=== PATIENT | male | born 1980 | race Caucasian/White ===

== ENCOUNTER 2022-11-16 18:43 | Emergency (ER) | payer OTHER, SELFPAY ==
[2022-11-16 18:50] VITALS: BP 152/90; PULSE 70; RESP 18; TEMP 36.7; O2SAT 100; BMI 26.6
--- NOTE | 2022-11-16 19:46 | ED.SKABFB1 ---
HPI - Skin/Abscess/Foreign Bdy General Chief complaint: Skin/Abscess/Foreign Body Stated complaint: RASH Time Seen by Provider: 11/16/22 19:43 Source: patient Mode of arrival: walk-in Limitations: no limitations History of Present Illness HPI narrative: skin rash past 3 days. pruritic rash . started right shoulder and has now spread to his trunk, arms and neck. No fever or pain. No associated dyspnea MD complaint: Reports rash Related Data Allergies Allergy/AdvReac Type Severity Reaction Status Date / Time No Known Drug Allergies Allergy Verified 11/16/22 18:56 Review of Systems ROS Status of ROS 10 or more systems reviewed and unremarkable except as noted in history and below PFS PFS Social History Smoking status: Current every day smoker Exam Constitutional Vital Signs, click to edit/add: Last Vital Signs Temp 98.1 F 11/16/22 18:50 Pulse 70 11/16/22 18:50 Resp 18 11/16/22 18:50 BP 152/90 H 11/16/22 18:50 Pulse Ox 100 11/16/22 18:50 O2 Del Method Room Air 11/16/22 18:50 Common normals: no apparent distress, average body habitus, oriented x3, no limitations and healthy appearing Other: rash gen. on extremities, neck and trunk HENMT Common normals: normocephalic and head/scalp atraumatic Eye Common normals: EOMs intact bilaterally, conjunctivae normal and no scleral icterus Respiratory Common normals: normal respiratory effort, no retractions and no use of accessory muscles Cardio Common normals: regular rate, regular rhythm, S1 normal heart sound and S2 normal heart sound GI Common normals: Normal to inspection, nondistended, normoactive bowel sounds present, soft to palpation and non-tender Extremity Common normals: normal to inspection and full ROM Neuro Common normals: oriented x3, CN's II-XII intact bilaterally, moves all extremities and no focal motor deficits Psych Appearance: grossly normal Course Vital Signs Vital signs: Vital Signs Temperature 98.1 F 11/16/22 18:50 Pulse Rate 70 11/16/22 18:50 Respiratory Rate 18 11/16/22 18:50 Blood Pressure 152/90 H 11/16/22 18:50 Pulse Oximetry 100 11/16/22 18:50 Oxygen Delivery Method Room Air 11/16/22 18:50 Temperature 98.1 F 11/16/22 18:50 Pulse Rate 70 11/16/22 18:50 Respiratory Rate 18 11/16/22 18:50 Blood Pressure 152/90 H 11/16/22 18:50 Pulse Oximetry 100 11/16/22 18:50 Oxygen Delivery Method Room Air 11/16/22 18:50 MDM - Skin/Abscess/Foreign Bdy MDM Narrative Medical decision making narrative: patient presents with gen. pruritic rash. Has appearance of [place]. non painful or tender. No associated dyspnea or joint swelling. Given an injection of solumedrol and discharged home with a prescription of prednisone Discharge Plan Discharge Chief Complaint: Skin/Abscess/Foreign Body Clinical Impression: Contact dermatitis Patient Disposition: Home, Self-Care Condition: Good Mode of Transportation: Private Vehicle Instructions: Contact Dermatitis (ED) Additional Instructions: follow up with your doctor later this week for recheck Stand Alone Forms: Portal Instructions Referrals: Physician,Non-Staff, MD [Primary Care Provider] - 1 week Discharge Date/Time: 11/16/22 20:30
[2022-11-16] MEDS: METHYLPREDNISOLONE SOD SUCC PF 125 MG/2 ML VIAL IM (20:21)
== END 2022-11-16 20:30 | disposition home or self-care (01) ==
PROVIDERS: Emergency Provider Internal Medicine
DX: L25.9 Unspecified contact dermatitis, unspecified cause (principal); F17.210 Nicotine dependence, cigarettes, uncomplicated
CPT/HCPCS: 96372; 99284; J2930